=== PATIENT | female | born 1985 | race Hispanic/Latino ===

== ENCOUNTER 2018-08-06 11:41 | Emergency (ER) | payer MEDICAID, OTHER ==
[2018-08-06 12:22] LABS: BASOPHILS % (AUTO) 0.2 % (0.0-5.0); EOSINOPHILS % (AUTO) 2.1 % (0.0-8.0); HEMATOCRIT 35.3 % (36-48); LYMPHOCYTES % (AUTO) 24.3 % (21.0-51.0); MEAN CORPUSCULAR HEMOGLOBIN 27.3 pg (27.0-33.0); MEAN CORPUSCULAR HGB CONC 33.4 g/dL (32.0-36.0); MEAN CORPUSCULAR VOLUME 81.8 fL (79-99); MONOCYTES % (AUTO) 5.1 % (3.0-13.0); NEUTROPHILS % (AUTO) 68.3 % (40.0-77.0); PLATELET COUNT (AUTO) 262 K/uL (130-400); RED BLOOD CELL COUNT(AUTO) 4.32 MIL/uL (4.00-5.50); RED CELL DISTRIBUTION WIDTH 15.7 % (11.0-15.5); WHITE BLOOD COUNT (AUTO) 9.1 K/uL (4.8-10.8)
[2018-08-06 12:33] LABS: CREATININE 0.7 mg/dL (0.5-1.5); POTASSIUM 4.1 mmol/L (3.5-5.1)
[2018-08-06 12:37] LABS: INR 0.93 (0.85-1.15); PARTIAL THROMBOPLASTIN TIME 29.3 SEC (26.3-35.5); PROTHROMBIN TIME 9.8 SEC (9.6-11.6)
== END 2018-08-06 12:50 | disposition home or self-care (01) ==
LOC: EDH 11:41
DX: N93.8 Other specified abnormal uterine and vaginal bleeding (principal); Z98.890 Other specified postprocedural states
CPT/HCPCS: 36415; 80048; 81025; 85025; 85610; 85730

== ENCOUNTER 2022-09-27 20:07 | Emergency (ER) | payer BC, OTHER ==
[~2022-09-27] VITALS: Ht 152.4 cm; Wt 99.8 kg
[2022-09-27 20:09] VITALS: BP 139/84
[2022-09-27] MEDS ORDERED: PRED20TA3 PO (20:46)
[2022-09-27] MEDS ORDERED: METF-446 PO (20:46)
[2022-09-27] MEDS ORDERED: SOLU-MEDROL 40MG VIAL ONE (20:52)
[2022-09-27] MEDS ORDERED: SOLU-MEDROL 40MG VIAL IJ ONE (21:00)
== END 2022-09-27 20:59 | disposition home or self-care (01) ==
LOC: EDH 20:07
DX: L50.9 Urticaria, unspecified (principal); E11.9 Type 2 diabetes mellitus without complications; E78.00 Pure hypercholesterolemia, unspecified; I10 Essential (primary) hypertension; Z98.890 Other specified postprocedural states
CPT/HCPCS: 99284; 96374; J2920

== ENCOUNTER 2023-11-21 22:55 | Emergency (ER) | payer BC, OTHER ==
[~2023-11-21] VITALS: Ht 152.4 cm; Wt 93.0 kg
[~2023-11-21 22:55] MED LIST: METF-446 PO; PRED20TA3 PO
[2023-11-21 23:35] LABS: RAPID GROUP A STREP negative (NEGATIVE)
[2023-11-21 23:39] LABS: SARS-CoV-2, RNA, NAAT NEGATIVE SARS CoV-2 (NEGATIVE)
[2023-11-21 23:44] LABS: INFLUENZA TYPE A Negative For Type A (NEGATIVE); INFLUENZA TYPE B Negative For Type B (NEGATIVE)
[2023-11-21] MEDS ORDERED: POLYOS OD (23:50)
[2023-11-21] MEDS ORDERED: BENZ200C53 PO (23:50)
[2023-11-21 23:58] LABS: APPEARANCE,URINE CLEAR (CLEAR); BILIRUBIN,URINE NEGATIVE (NEGATIVE); COLOR,URINE LIGHT-YELLOW (YELLOW); GLUCOSE, URINE (UA) NEGATIVE (NEGATIVE); KETONES,URINE NEGATIVE (NEGATIVE); LEUKOCYTE ESTERASE ,URINE NEGATIVE Leu/uL (NEGATIVE); NITRATE,URINE NEGATIVE (NEGATIVE); OCCULT BLOOD,URINE NEGATIVE (NEGATIVE); PH,URINE 5.5 (5.0-8.0); PROTEIN,URINE 20 mg/dL (NEGATIVE); UROBILINOGEN,URINE 0.2 mg/dL (0.2-1.0)
[2023-11-22] LABS: HCG,QUALITATIVE URINE NEGATIVE (NEGATIVE)
[2023-11-22 00:01] LABS: ADD UA MICROSCOPIC YES
[2023-11-22 00:02] LABS: BACTERIA,URINE RARE /HPF (None Seen); MUCUS,URINE RARE LPF (None Seen); RBC,URINE 0-1 /HPF (0-1); SQUAMOUS EPITHELIAL CELL,UR FEW /HPF (0-2)
[2023-11-22 00:19] VITALS: BP 128/72; PULSE 72; RESP 16; O2SAT 99
== END 2023-11-22 00:22 | disposition home or self-care (01) ==
LOC: EDH 22:55
DX: H00.021 Hordeolum internum right upper eyelid (principal); R05.9 Cough, unspecified; E11.9 Type 2 diabetes mellitus without complications; E78.00 Pure hypercholesterolemia, unspecified; I10 Essential (primary) hypertension; Z79.52 Long term (current) use of systemic steroids; Z79.84 Long term (current) use of oral hypoglycemic drugs; Z20.822 Contact with and (suspected) exposure to COVID-19
CPT/HCPCS: 81001; 81025; 87635; 87804; 87880